=== PATIENT | female | born 1975 | race Caucasian/White ===

== ENCOUNTER 2019-06-09 06:44 | Day surgery (SDC) | payer OTHER, SELFPAY ==
[2019-04-14 14:41] VITALS: BMI 24.7
[2019-05-19 16:42] VITALS: BMI 24.7
--- NOTE | 2019-05-25 03:12 | PCM.HPOB.BLA ---
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 Is patient in pain?: No Allergies penicillin G Allergy (Mild, Verified 05/19/19 16:15) other Medications vitamin#30 30 mg iron-10 mg iron-folic acid 1 mg-omg3 capsule cap PO cap 04/14/19 [History Confirmed 05/19/19] misoprostol 200 mcg tablet 800 mcg PO .complex #4 tab 04/19/19 [Rx Confirmed 05/19/19] norethindrone (contraceptive) 0.35 mg tablet 0.35 mg PO DAILY #28 tab 04/22/19 [Rx Confirmed 05/19/19] Post menopausal: No Patient : No : No [facility] Medical History History of anxiety (Acute) Family History Mother Breast cancer Social History (Updated 05/25/19 @ 02:58 by Hortensia Moyer MD) Smoking Status: Light Smoker (<10/day) alcohol intake: never substance use type: does not use caffeine: Yes what type of physical activity do you participate in: walking seatbelt use: always do you feel safe at home: Yes additional social history: Works for [employer] HPI pre op folder/soap: Details: GREG ZAPATA is a 43 year old who presents for preop for sterilization. Female Reproductive History Menopausal Symptoms: No night sweats Pregancy History 2 Elective abortions Hx Para 1 Spontaneous abortions Hx # Term Pregnancies Ectopic pregnancies Hx # Pregnancies Multiple births # of living children Past Pregnancies Del. Date Name GA/Weeks Outcome Route Bth Weight Infant Gen Labor Lgth Anesthesia Del Locatn Provider FOB Unknown Baby was adopted ROS Const Constitutional: Denies fatigue, night sweats, weight gain or weight loss ENT ENT: Reports system reviewed and no additional complaints, except as docu Cardio Card: Denies chest pain Resp Resp: Denies cough or dyspnea GI GI: Reports as per HPI; denies abdominal pain, constipation, nausea or vomiting : Denies nipple discharge, urinary frequency, urinary incontinence, urinary hesitancy, urinary urgency, vaginal discharge, vaginal dryness, vaginal odor or vaginal itching Musc Musc: Denies joint pain, back pain or muscle weakness Skin Skin/Breast: Denies hair loss, change in hair, dry skin, breast lump, breast pain, breast skin changes or nipple discharge Neuro Neuro: Reports system reviewed and no additional complaints, except as docu Psych Psych: Reports system reviewed and no additional complaints, except as docu Endo Endo: Denies cold intolerance, excessive sweating, heat intolerance or increased thirst Kirit/Lymph Hematologic/Lymphatic: Denies easy bleeding, Denies easy bruising, Denies enlarged lymph nodes Exam Const General: cooperative, healthy appearing, comfortable, no acute distress, well developed Orientation: alert HENFL Head: normal to inspection, normocephalic Ears: hearing grossly normal bilaterally, external ears normal Nose: external nose normal, nares normal Face and sinus: normal facial exam Neck Neck: normal visual inspection, no lymphadenopathy Thyroid: thyroid normal Chest Chest palpation & inspection: normal inspection of the chest Resp Effort & Inspection: normal respiratory effort Auscultation: clear to auscultation bilaterally Cardio Rate: regular rate Rhythm: regular rhythm Heart Sounds: S1 normal, S2 normal GI Inspection: normal to inspection, non-distended Palpation: soft, no hepatosplenomegaly Musc Other: gross motor intact no deficits, full bilateral strength Skin General: no rashes or lesions noted Neuro General: alert, awake, moves all extremities, no focal motor deficits Motor: muscle tone normal throughout Extrem General: normal to inspection, no pedal edema Psych Appearance: grossly normal Mental Status: mental status grossly normal Affect: normal affect Speech and Movement: speech and movement normal Assessment & Plan Problems 1. Sterilization consult Z Plan plan laparoscopic bilateral salpingectomy. discussed surgical risks including risks of anesthesia, infection, bleeding, injury to bowel, bladder or blood vessels, and patient wishes to proceed with surgery. Coding Level of Care Code No Charge Diagnoses Sterilization consult Z UPDATE- I have seen the patient and performed any clinically relevant updates to the history and physical exam. Hortensia Moyer MD
[2019-06-09] VITALS (7 sets, daily range): BP systolic 109–126; BP diastolic 71–84; PULSE 58–72; RESP 16; TEMP 36.2–37.4; O2SAT 93–100; BMI 23.5
--- NOTE | 2019-06-09 | FALS_PTH ---
PATIENT: GREG ZAPATA LOC: [facility] [place] U#:[id number] AGE/SX: 43/F ROOM: RE06/09/[address]: Dr. Hortensia Moyer MD : [id number] BED: DIS: 06/09/2019 SPEC #: [id number] RECD: 06/09/19 14:33 STATUS: DAVI REJacey #: [id number] LISA: 06/09/19 00:[address]: Hortensia Moyer DEPT: SURGICAL PATHOLOGY RECD BY: Josep Darden ENTERED: 06/09/19 14:33 SP TYPE: FALL TUBES OTHR DR: Dr. Jeremy Cesar MD Tissues: Fallopian tube Procedures: Surgery Specimen Level II HEADER OPERATION: Laparoscopic salpingectomy PRE-OP DIAGNOSIS: Desired sterilization TISSUE SUBMITTED: Bilateral fallopian tubes MICROSCOPIC DIAGNOSIS Right and left fallopian tubes, bilateral salpingectomies: Two complete segments of fallopian tubes. Benign paratubal cyst. AM:silvano 06/10/19 MICROSCOPIC DESCRIPTION Slides are reviewed. GROSS DESCRIPTION Received is one container labeled with the patient's name and designated bilateral fallopian tubes. The specimen consists of two fallopian tubes with an average length of 6 cm and has an average diameter of 0.6 cm. Both fallopian tubes have normal fimbriated ends. No mass lesions are identified. Bell Tier sections are submitted in two cassettes as follows: 1 - one fallopian tube, 2 - the other fallopian tube. / AM:silvano 06/09/19 TC:5 CPT: 84402 x2
[2019-06-09 07:14] LABS: Internal QC Validated? YES +Cl - CLEAR BKGD
[2019-06-09 07:15] LABS: Pregnancy, Urine Negative Negative
[2019-06-09 07:17] LABS: Hematocrit 42.1 % (37-47); Hemoglobin 14.4 g/dL (12.0-15.0); Mean Corp Hgb Conc 34.2 g/dL (32-36); Mean Corpuscular Hgb 32.8 pg (27.0-32.0); Mean Corpuscular Volume 95.9 fL (81-99); Mean Platelet Vol. 10.5 fl (6.2-12.0); Platelet Count 206 K/mm3 (150-450); RBC Distribution Width CV 12.8 % (11.6-14.6); RBC Distribution Width SD 45.1 fl (35.1-43.9); Red Blood Count 4.39 M/mm3 (4.2-5.4); White Blood Count 4.7 K/mm3 (4.4-11.0)
--- NOTE | 2019-06-09 09:38 | PCM.OPRPT ---
Problem List (1) Sterilization consult Status: Acute Report of Operation Date of Procedure: 06/09/19 Pre-Operative Diagnosis: sterilization Post-Operative Diagnosis: same Surgery/Procedure Performed:: laparoscopic bilateral salpingectomy Description of Surgical Findings:: left ovarian simple cyst normal uterus tubes brokerage purchase and sale clerk: Ivy Abdalla Type of Anesthesia:: General Special Medications: none Specimen's removed: tubes Drains: none Estimated Blood Loss (mL): 10 Fluids Replaced: crystalloid Description of Procedure: Patient was taken in the operating room and was placed under general anesthesia was prepped and draped in normal sterile fashion in the dorsal lithotomy position. Bladder was drained of clear urine and SCDs were on preoperatively. Uterus was sounded and a uterine manipulator was placed after dilating. Attention was then paid to the abdominal portion of the procedure and the umbilicus was elevated with towel clamps and injected with Marcaine and after a 5 mm incision was made and the Veress needle was entered into the abdomen confirmed to be intra-abdominal with a low opening pressure of less than 5 mmHg. Abdomen was insufflated with CO2 gas and a 5 mm optical trocar was placed under direct visualization. A left lower quadrant 5 mm port and a 5 mm port suprapubically replaced under direct visualization. Uterus was well visualized and bilateral fallopian tubes identified and bilateral tubes were elevated and transecting across the mesosalpinx and the attachment to the uterine corpus bilaterally the tubes were removed without complication. Excellent hemostasis was noted. Fallopian tubes were removed through the lower port sites without complication. Liver and upper abdomen were visualized notably within normal limits and no other gross abnormalities were seen in the abdomen. All instruments removed from the abdomen after gas was desufflated. Port sites were closed with 3-0 Monocryl Steri's and op sites were applied. All instruments removed from the vagina and patient was awoken and taken recovery in stable condition. Grafts/Implants Used: none - Complications none - Admit VTE Documentation VTE Present on Admission: No
--- NOTE | 2019-06-09 09:40 | DCINST_ITS ---
Discharge Diet: No Restrictions - Increase fluid intake for the next 48 hours. Discharge Activity: Return to Normal Activity, May Drive - when you are no longer taking narcotic pain medications., May Shower, May Take a Tub Bath - in 7 days Additional Activity Instructions:: Ambulate often the next week after surgery. Nothing in the vagina for 5 days. Call your doctor if your incision/area has: Continuous Slow Oozing, Sudden Increased Bleeding, Increased Pain/ Swelling, Increased Redness, Foul Smelling Discharge Call your doctor if you observe: Fever of 101 or Higher Allergies/Adverse Reactions: Allergies penicillin G Allergy (Mild, Verified 06/02/19 12:56) other Medications to take at Discharge norethindrone (contraceptive) 0.35 mg tablet 0.35 mg PO DAILY #28 tab 04/22/19 Naproxen [Naprosyn] 250 - 500 mg PO Q8H PRN PRN #30 tab 06/09/19 The following prescriptions were given: Naproxen [Naprosyn] 250 - 500 mg PO Q8H PRN PRN #30 tab PRN Reason: MILD PAIN Transmission Status: Pending to [id number] Primary Care Physician: Jeremy Cesar MD [Primary Care Provider] - Test Results: Test results from this visit will be discussed in further detail at your follow- up appointment, if applicable. Please Follow Up With: Hortensia Moyer MD - [phone]
[2019-06-09] MEDS: Bupivacaine 0.25% 30 ML Vial (10:00)
== END 2019-06-09 12:58 | disposition home or self-care (01) ==
LOC: SDC 06:46 → AC 06:47
PROVIDERS: Family Provider Family Medicine; PCP Family Medicine; Referring Provider Obstetrics & Gynecology; Visit Provider Obstetrics & Gynecology
PROC: (CPT 58661; principal; 2019-06-09 09:35)
DX: Z30.2 Encounter for sterilization (principal); N83.8 Other noninflammatory disorders of ovary, fallopian tube and broad ligament; K21.9 Gastro-esophageal reflux disease without esophagitis; F17.200 Nicotine dependence, unspecified, uncomplicated; Z88.0 Allergy status to penicillin
CPT/HCPCS: 58661; 36415; 81025; 85027; 86850; 86900; 88302; J7120; J2405

== ENCOUNTER → 2019-10-10 14:58 | Outpatient (CLI) | payer OTHER, SELFPAY ==
[2019-06-27 08:53] VITALS: BMI 23.5
[2019-10-10 14:39] VITALS: BMI 23.5
--- NOTE | 2019-10-10 15:01 | BI_ITS ---
MAMMOGRAPHY - BILATERAL SCREENING REASON FOR EXAM: Female, 43 years old. Routine annual screening examination. PERTINENT HISTORY: Mother with breast cancer. TECHNIQUE: Digital bilateral breast masood (3D mammographic acquisition) in the CC and MLO projections. 2-D mediolateral oblique (MLO) and craniocaudad (CC) views of both breasts were obtained. CAD: Full Field Digital Mammography with Computer Added Detection was performed. COMPARISON: Comparison is made with prior study February 09, 2015 and January 09, 2014. FINDINGS: Breast Composition: The breasts are extremely dense, which lowers the sensitivity of mammography. There are no dominant masses or suspicious calcifications. No other significant abnormalities are identified. There has been no significant change since the prior study. BI/SCREEN MAMM (CAD) W/MASOOD BILAT IMPRESSION: Stable bilateral screening mammogram. Yearly follow-up mammogram recommended. (A) ASSESSMENT CATEGORY: BIRADS Category 1: Negative. A letter regarding these results will be sent to the patient by the facility within 30 days. Approximately 10% of breast cancers are not detected by mammography. A normal mammogram should not delay biopsy of a clinically suspicious abnormality. [id number] Electronically Signed: Justen Hernandez, at 15:43 EST , Service support ,
[2019-10-10 20:08] LABS: Chlamydia Trachomatis by PCR Negative (Negative); Neisserai gonorrhoeae by PCR Negative (Negative); Probe Check PASS; Sample Adequacy Control PASS; Specimen Processing Control PASS
[2019-10-13 18:00] LABS: HPV APTIMA, High Risk Negative (Negative)
== END ==
PROVIDERS: Family Provider Family Medicine; PCP Family Medicine; Referring Provider Obstetrics & Gynecology; Visit Provider Obstetrics & Gynecology
DX: Z12.31 Encounter for screening mammogram for malignant neoplasm of breast (principal); Z80.3 Family history of malignant neoplasm of breast; Z12.4 Encounter for screening for malignant neoplasm of cervix; Z20.2 Contact with and (suspected) exposure to infections with a predominantly sexual mode of transmission
CPT/HCPCS: 77063; 77067; 87491; 87591; 87624; 88175; G0145

== ENCOUNTER → 2021-06-17 14:46 | Outpatient (CLI) | payer OTHER, SELFPAY ==
[2021-06-17 14:38] VITALS: BMI 22.8
[2021-06-17 16:01] LABS: HIV - WCH Non-Reactive (Nonreactive); Hepatitis B Surface Antigen Non-Reactive (Nonreactive); Hepatitis C Antibody Non-Reactive (Nonreactive); Syphilis Antibodies Non-reactive
[2021-06-19 09:51] LABS: HSV 2 IgG < 0.91 index (0.00-0.90)
[2021-06-20 08:08] LABS: Chlamydia By Nucleic Acid AMP Negative (Negative)
[2021-06-20 12:27] LABS: Gonococcus By Nucleic Acid AMP Negative (Negative)
== END ==
PROVIDERS: PCP Family Medicine; Referring Provider Nurse Practitioner Women's Health; Visit Provider Nurse Practitioner Women's Health
DX: R10.2 Pelvic and perineal pain (principal); Z20.2 Contact with and (suspected) exposure to infections with a predominantly sexual mode of transmission
CPT/HCPCS: 36415; 86695; 86696; 86703; 86780; 86803; 87070; 87205; 87340; 87491; 87591